=== PATIENT | male | born 1945 | race Caucasian/White ===

== ENCOUNTER → 2016-12-30 | Outpatient (CLI) | payer MEDICARE ==
--- NOTE | 2016-12-30 21:40 | CT ---
EXAMINATION TYPE: CT cervical spine wo con DATE OF EXAM: 12/30/2016 6:52 PM COMPARISON: NONE HISTORY: Right sided neck pain x [address] DLP: 485.00 mGycm. Automated Exposure Control for Dose Reduction was Utilized. TECHNIQUE: CT scan of the cervical spine is obtained without contrast, axial images are obtained, sa gittal and coronal reformatted images are also reviewed. FINDINGS: Cervical spine is visualized in its entirety from C1 through upper thoracic levels, demonst rates straightened alignment without evidence of acute fracture or dislocation. There is grade 1 retr olisthesis of C3 on C4, C5 on C6, and C6 on C7. Prevertebral soft tissue appears within normal limits . The C1-C2 articulation is within normal limits on the coronal images. Vertebral body heights are m aintained. There is moderate to severe disc space narrowing at C3-C4, C5-C6, and C6-C7 levels. Modera te to severe spurring is noted at C5-C6 and C6-C7 levels. Spinal canal is fairly well maintained on s agittal images. Osseous structures are somewhat demineralized. Review of axial images shows the C2-C3 level to appear within normal limits. Axial images at C3-C4 level show posterior and marginal spurring mildly effacing anterior thecal sac and causing mild bilateral neural foraminal narrowing. Axial images at C4-C5 level show right-sided uncovertebral facet degenerative changes causing moderat e right-sided neural foraminal narrowing. Axial images at C5-C6 level show left-sided marginal spurring and uncovertebral facet degenerative ch anges causing moderate left-sided neural foraminal narrowing. Spondylolisthesis is present. Axial images at C6-C7 level show spondylolisthesis and marginal spurring causing mild to moderate lef t-sided neural foraminal narrowing. Axial images at C7-T1 level show left-sided marginal spurring and facet arthropathy causing mild left -sided neural foraminal narrowing. IMPRESSION: Loss of normal cervical curvature with multilevel degenerative changes seen as detailed a nando.
== END | disposition home or self-care (01) ==
LOC: RADCTMAIN 18:28
PROVIDERS: ATTEND Physical Medicine & Rehabilitation
DX: M47.812 Spondylosis without myelopathy or radiculopathy, cervical region (principal)
CPT/HCPCS: 72125

== ENCOUNTER → 2017-07-06 | Outpatient (CLI) | payer MEDICARE ==
[2017-06-29 15:50] VITALS: BMI 24.1
--- NOTE | 2017-07-06 10:53 | P.HPIM ---
History of Present Illness H&P Date: 07/06/17 Chief Complaint: neck pain This is a 72-year-old patient referred by Dr. Gifford for chronic pain in right side of the neck with some radiation to right shoulder and is referred for right cervical RFA after having relief with two cervical MBBs; patient has defibrillator and Drs. Gifford and Mikel wish for him to have RFA done in a hospital setting. Patient has been taking medications from Dr. Gifford including tramadol medications with some relief. Patient denies adverse drug effects from medications. Patient also denies new-onset weakness, bowel/ bladder incontinence, or any other signs or symptoms of cauda equina syndrome. There are no signs of acute intoxication, and no indications of medication diversion or overuse. Patient notes that pain worsens significantly with rotating the neck and driving , and improves with rest and medication. Patient has used several types of medications for pain, including NSAIDS, TRAMADOL. Patient HAS NOT had surgery. Patient HAS NOT had injections previously. Patient HAS NOT had physical therapy recently. In addition to above, 13-point review of systems is also negative for chest pain , shortness of breath, changes in vision, changes in hearing, new onset weakness , abdominal pain, diarrhea, extreme fatigue, malaise, fever, skin changes, homicidal or suicidal ideation, or bowel or bladder incontinence. 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 enlarged heart, melanoma, neck pain History of Any Multi-Drug Resistant Organisms: None Reported Past Surgical History: AICD, Orthopedic Surgery Additional Past Surgical History / Comment(s): rotator cuff repair, arthroscopy knees Past Anesthesia/Blood Transfusion Reactions: Previous Problems w/ Anesthesia Additional Past Anesthesia/Blood Transfusion Reaction / Comment(s): slow to wake up @times Type of Cardiac Device: AICD Device Placement Date:: 2009 [employer] Smoking Status: Former smoker Medications and Allergies Home Medications Medication Instructions Recorded Confirmed Type Aspirin 81 mg PO DAILY 06/29/17 07/06/17 History Carvedilol [Coreg] 12.5 mg PO BID 06/29/17 07/06/17 History Dutasteride [Avodart] 0.5 mg PO DAILY 06/29/17 07/06/17 History L.acidoph,Paracasei, B.lactis 1 each PO BID 06/29/17 07/06/17 History [Probiotic] Meloxicam [Mobic] 7.5 mg PO DAILY PRN 06/29/17 07/06/17 History [place]-3 Fatty Acids/Fish Oil [Fish 1 each PO DAILY 06/29/17 07/06/17 History Oil 1,000 mg Softgel] Omeprazole [PriLOSEC] 20 mg PO AC-BRKFST PRN 06/29/17 07/06/17 History Rosuvastatin [Crestor] 20 mg PO DAILY 06/29/17 07/06/17 History Ubidecarenone [Co Q-10] 100 mg PO DAILY 06/29/17 07/06/17 History Vitamin B Complex 1 each PO DAILY 06/29/17 07/06/17 History amLODIPine BESYLATE/BENAZEPRIL 1 cap PO DAILY 06/29/17 07/06/17 History [amLODIPine BESYLATE/BENAZEPRIL 5-20 mg] traMADol HCL [Ultram] 25 mg PO Q6HR PRN 06/29/17 07/06/17 History Allergies Allergy/AdvReac Type Severity Reaction Status Date / Time No Known Allergies Allergy Verified 07/06/17 10:23 Results Comments: Computed tomography scan of the cervical spine demonstrates right-sided uncovertebral facet degenerative changes and right-sided neural foraminal narrowing at the C4-C5 level. At the C3-C4 level there is posterior marginal spurring mildly effacing the anterior thecal sac and causing mild bilateral neural foraminal narrowing. This foot C6 level there is left-sided marginal spurring and uncovertebral facet degenerative changes causing moderate left- sided neural foraminal narrowing. There is spondylolisthesis and marginal spurring causing mild to moderate left-sided neural foraminal narrowing at the C6-C7 level. Assessment and Plan (1) Cervical spondylosis without myelopathy Status: Chronic (2) Chronic pain syndrome Status: Chronic (3) Neural foraminal stenosis of cervical spine Status: Chronic Plan: 1. Explanation: Opioid and psychological risk scores were reviewed. Diagnoses , prognoses, and multiple treatment options including but not limited to physical therapy, interventional therapies, adjuvant medical therapies, narcotic medication therapies, and surgery were discussed with the patient and all questions were answered to the patient's satisfaction. 2. Opioid agreement: no opioids prescribed today 3. Counseling: The patient was counseled extensively on BODY MASS INDEX, EXERCISE. Specifically, the patient was instructed regarding the importance of weight control, and exercise in the context of both chronic pain and overall health. 4. Procedures: right ONLY cervical RFA C2-C3, C3-C4, C4-C5, C5-C6 5. Consultations: none 6. Investigations: none 7. Medications: none prescribed 8. Disposition: f/u for procedure as scheduled PQRS measures: 1-Patient's medications are documented in the chart. 2-Tobacco use is negative 3-Patient has not had a pneumococcal vaccine. 4-Advanced care planning discussed, patient unable to give. 5-Opioid contract NOT signed with the patient. 6-Pain positive, follow-up visit or procedure scheduled 7-Patient's blood pressure measured and documented, and patient will follow up with the primary care due to hypertension. 8-Patient's weight was measured, and body mass index WNL. 9-Patient WAS NOT identified as an unhealthy alcohol user. Time with Patient: Greater than 30
[2017-07-06 11:04] VITALS: BP 146/84; PULSE 58; RESP 16; TEMP 97.8
== END | disposition home or self-care (01) ==
LOC: PNWHC3 10:18
PROVIDERS: ATTEND Anesthesiology
DX: M99.71 Connective tissue and disc stenosis of intervertebral foramina of cervical region (principal); M47.812 Spondylosis without myelopathy or radiculopathy, cervical region; G89.4 Chronic pain syndrome; Z79.82 Long term (current) use of aspirin; Z79.02 Long term (current) use of antithrombotics/antiplatelets
CPT/HCPCS: 99211

== ENCOUNTER 2017-07-27 06:44 | Day surgery (SDC) | payer MEDICARE ==
[2017-07-21 09:09] VITALS: BMI 24.1
[~2017-07-27 06:44] MED LIST: LACTATED RINGERS 1,000 ML IV SCH
[2017-07-27 07:08] VITALS: TEMP 97.5
[2017-07-27] MEDS ORDERED: IV FLUID CONTINUATION 1,000 ML IV ONE ×2 (08:10)
--- NOTE | 2017-07-27 08:13 | FL ---
EXAMINATION TYPE: FL guided pain mgmt statistic DATE OF EXAM: 07/27/2017 HISTORY: Flouroscopy time 7 seconds of fluoroscopy provided. IMPRESSION: 1. Fluoroscopy time.
[2017-07-27 08:31] VITALS: BP 117/72; PULSE 63; RESP 16
--- NOTE | 2017-07-27 11:05 | P.PCN ---
Date of Procedure: 07/27/17 Preoperative Diagnosis: Postoperative Diagnosis: Procedure(s) Performed: PREOPERATIVE DIAGNOSIS: Cervical spondylosis with Facet Arthropathy without myelopathy. POSTOPERATIVE DIAGNOSIS: Cervical spondylosis with Facet Arthropathy without myelopathy. PROCEDURES: Radiofrequency thermocoagulation, Right C2-3, C3-4, C4-5, C5-6 medial branch with Fluroscopy [place] ANESTHESIA: Local with 1% lidocaine 4 ml ; IV sedation with fentanyl 100 Mcg , and Versed 2 mg . EBL: Minimal PROCEDURE INDICATION: The patient with neck pain secondary to cervical arthropathy who had more than 50% relief of her pain with previous diagnostic cervical medial branch block. (done at the [facility] ) PROCEDURE DESCRIPTION / TECHNIQUE: The patient was seen and identified in the preoperative area. Risks, benefits, complications, and alternatives were discussed with the patient, the patient agreed to proceed with the procedure and signed the consent. IV was started. Vital signs remained stable throughout the procedure. Patient was taken to the OR and time out was completed. The patient was placed in the prone position on the procedure table. A pillow was placed under the patients chest to increase the cervical interlaminar space. The cervical area was prepped and draped in the usual sterile fashion. Critical pause was taken. Vital signs were closely monitored during the procedure. Conscious sedation was used during the procedure to decrease patients anxiety. Using cross-table lateral fluoroscopy, the centroid of the trapezoid of Right C2 , C3, C4, C5, were identified, marked, and localized with 1% lidocaine. Subsequently, a 20 [id number] radiofrequency cannula with a 10-mm active tip was advanced guided by fluoroscopy to the centroid of the trapezoid of C2 , C3, C4, C5, . Needle tip position was confirmed at the centroid of the trapezoids of C2 , C3, C4, C5, with anteroposterior fluoroscopy. Each site then underwent sensory testing at 50 Hz and 0 to 1 volt and motor testing at 2 Hz and 0 to 3 volt with local stimulation, but no radicular symptoms down the arm. Thereafter Right C2 ,C3, C4,C5 sites underwent radiofrequency thermocoagulation at 80 degrees celsius for 90 seconds after injecting 0.5 ml of PF lidocaine 1%. After thermocoagulation, 1 ml of the block solution containing Dexamethasone 10 mg and 4 mL of PF bupivacaine 0.5% was injected at the Right C2 , C3, C4, C5, levels after negative aspiration of CSF and blood and with no paresthesias. Cannulas were retracted while injecting lidocaine 1% until the needle is out. Skin was cleansed and bandages were applied. COMPLICATIONS: No acute complications. COMMENTS: DISPOSITION / PLANS: The patient was placed in a supine position and transferred to the recovery area in a stable condition for observation and was discharged from the recovery room after meeting discharge criteria. Home discharge instructions given to the patient by the staff. The patient was reexamined prior to discharge. note = magnet was placed on top of the AICD , during the stimulation phase of the degenerative and also during the radiofrequency part , she monitored the whole time , was no significant changes and after the procedure twelve-lead EKG ordered , and there was no skin changes . Implants: Indications for Procedure: Operative Findings: Description of Procedure:
== END 2017-07-27 08:53 | disposition home or self-care (01) ==
LOC: ORPAIN 06:44
PROVIDERS: ATTEND Specialist
DX: M47.812 Spondylosis without myelopathy or radiculopathy, cervical region (principal); M46.92 Unspecified inflammatory spondylopathy, cervical region; Z95.810 Presence of automatic (implantable) cardiac defibrillator; I10 Essential (primary) hypertension
CPT/HCPCS: 93005; 64633; 64634; 99152; 99153; J2250; J1100; J3010

== ENCOUNTER → 2017-08-18 | Outpatient (CLI) | payer MEDICARE ==
[2017-08-18 13:42] VITALS: BP 150/84; PULSE 62; RESP 16
--- NOTE | 2017-08-18 13:55 | P.PN ---
Progress Note - Text Patient returns for followup for chronic neck pain and headaches, s/p R cervical RFA, which provided some relief for 2-3 weeks' interval. Patient continues on tramadol medications for pain from Dr. Gifford with some relief. Patient denies adverse drug effects from medications. Today, pt denies new- onset weakness, bowel/bladder incontinence, or any other signs or symptoms of cauda equina syndrome. There are no signs of acute intoxication, and no indications of medication diversion or overuse. In addition to above, 13-point review of systems is also negative for chest pain , shortness of breath, changes in vision, changes in hearing, new onset weakness , abdominal pain, diarrhea, extreme fatigue, malaise, fever, skin changes, homicidal or suicidal ideation, or bowel or bladder incontinence. 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 cervical spondylosis without myelopathy 2. cervicogenic headache 3. chronic pain syndrome Plan: 1. Explanation: Opioid and psychological risk scores were reviewed. Diagnoses , prognoses, and multiple treatment options including but not limited to physical therapy, interventional therapies, adjuvant medical therapies, narcotic medication therapies, and surgery were discussed with the patient and all questions were answered to the patient's satisfaction. 2. Opioid agreement: Patient has previously signed narcotic agreement, and was orally counseled to not overuse, abuse, divert, or cell medications, and to take them as prescribed by only 1 healthcare provider. The patient was also counseled to store opioid medications in a safe and preferably locked location. Patient was also counseled against driving or operating heavy equipment while using narcotic medications and also to not use alcohol or any illicit or recreational drugs. The patient verbalized understanding that lack of compliance with any of the above and likely result in failure to renew narcotic prescriptions, possible discharge from the clinic, and possible legal ramifications thereafter if indicated. 3. Counseling: The patient was counseled extensively on BODY MASS INDEX, EXERCISE. Specifically, the patient was instructed regarding the importance of weight control, and exercise in the context of both chronic pain and overall health. 4. Procedures: none for now, can call for repeat R cervical RFA if desired 5. Consultations: None 6. Investigations: None 7. Medications: patient told to discuss lido ointment and Voltaren gel with Dr. Gifford 8. Disposition: f/u as needed PQRS measures: 1-Patient's medications are documented in the chart. 2-Tobacco use is negative 3-Patient has not had a pneumococcal vaccine. 4-Advanced care planning discussed, patient unable to give. 5-Opioid contract NOT signed with the patient. 6-Pain positive, follow-up visit or procedure scheduled 7-Patient's blood pressure measured and documented, and patient will follow up with the primary care due to hypertension. 8-Patient's weight was measured, and body mass index within the normal limits 9-Patient WAS NOT identified as an unhealthy alcohol user.
== END ==
LOC: PNWHC3 13:21
PROVIDERS: ATTEND Anesthesiology
DX: M47.812 Spondylosis without myelopathy or radiculopathy, cervical region (principal); R51 Headache; Z79.891 Long term (current) use of opiate analgesic
CPT/HCPCS: 99211

== ENCOUNTER → 2020-06-06 | Day surgery (SDC) | payer MEDICARE, OTHER ==
[2020-05-31 09:06] VITALS: BMI 24.6
[~2020-06-06] MED LIST changes: +BALANCED SALT IRRIG SOLN COMB2 15 ML IRRIG.SOLN IRRIGATION ONE; +DEXAMETHASONE SOD PHOSPHATE 10 MG/ML 1 ML VIAL IV ONE; +EPINEPHrine (PF) 0.3 ML in BALANCED SALT IRRIG SOLN COMB2 500 ML IRRIGATION ONE; +FLUORESCEIN STRIPS 1 MG STRIP RIGHT EYE ONE; +HYALURONATE SODIUM INTRAOCULAR 1 EACH SYRINGE (12MG/ML) INTRAOCULA ONE; +HYDROmorphone 0.5 MG/0.5 ML SYRINGE IVP PRN; +LACTATED RINGERS 1,000 ML IV ONE; +LIDOCAINE 1% (10MG/ML) FOR IV START INTRADERMA PRN; +LIDOCAINE 1% (PF) 10MG/ML VIAL MISCELLANE ONE; +MIDAZOLAM 2 MG/2 ML VIAL ONE; +MOXIFLOXACIN HCL 0.5% DROPS 3 ML BTL OP ONE; +ONDANSETRON 4 MG/2 ML VIAL IVP ONE; +TETRACAINE 0.5% OPHTH (PF) DROPS 4 ML BTL OP ONE; +TIMOLOL 0.5% OPHTH DROPS 5 ML BTL OP ONE; +fentaNYL (PF) 50 MCG/ML 2 ML AMP ONE
[2020-06-06] MEDS: PHENYLEPHRINE 2.5% OPHTH DRP 2ML OP NR ×3 (07:30→07:42)
[2020-06-06] MEDS: CYCLOPENTOLATE 1% OPHTH SOLN 2 ML BTL OP ONE ×3 (07:33→07:45)
--- NOTE | 2020-06-06 08:54 | P.OP ---
Date of Procedure: 06/06/20 Preoperative Diagnosis: NS & PSC & CS & Flomax Postoperative Diagnosis: same w/ miosis Procedure(s) Performed: PIOL, OD Implants: AO1UV 21.00 Anesthesia: MAC Surgeon: Sajan Winslow Estimated Blood Loss (ml): 0 Pathology: none sent Condition: stable Disposition: same day Indications for Procedure: blurry vision Operative Findings: no complications
--- NOTE | 2020-06-06 20:03 | OP ---
OPERATIVE REPORT DATE OF SURGERY: 06/06/2020. PROCEDURE: Phacoemulsification of cataract and intraocular lens implant of the right eye. PREOPERATIVE DIAGNOSIS: Nuclear sclerosis, cortical sclerosis, posterior subcapsular cataract and previous exposure to Flomax. POSTOPERATIVE DIAGNOSIS: Nuclear sclerosis, cortical sclerosis, posterior subcapsular cataract and previous exposure to Flomax, with persistent miosis. SURGEON: Dr. Sajan Winslow. ANESTHESIA: Monitored anesthesia care. ESTIMATED BLOOD LOSS: Zero. SPECIMEN TAKEN: None. NARRATIVE: After obtaining the appropriate consent, the patient was brought to the operating room. There he was placed under cardiac monitoring, prepped and draped in the usual sterile manner. He was approached from his right temporal side, and a 5.5 mm Nikky ring was placed on the patient's cornea over the Purkinje reflex. At the 11 o'clock position, a 1.1 mm MVR blade was used to create a paracentesis port. Through this opening 1% xylocaine MPF 50:50 mix with balanced salt solution was injected into the anterior chamber. This was followed by stabilization of the anterior chamber with Amvisc. At the 9 o'clock position, a 2.75 mm augusto blade was used to create a self-sealing corneal flap incision in a Langerman's fashion. Because of the persistent miosis of approximately 4.5 mm, a 7 mm Malyugin ring was inserted on the pupillary sphincter. This was then followed by a cystotome which was used to begin a continuous tear capsulorrhexis which was completed using the Utrata forceps. Care was taken to ensure that the size of the rhexis was at least the size of the mega on the patient's cornea. Hydrodissection and hydrodelineation of the lens were accomplished with balanced salt solution. Phacoemulsification of the lens utilizing phaco chop was accomplished in 20.65 seconds at 13% power. Additional xylocaine MPF was instilled into the anterior chamber. This was followed by removal of the cortex with irrigation and aspiration along with careful polishing of the posterior capsule in capsule vacuum mode. Amvisc was used to stabilize the capsular bag, and using both [place] and Pepose capsule polishers, the equator and the underside of the anterior capsule leaflet was scrubbed for remaining lens fibers. The temporal incision was enlarged slightly and a Bausch and Lomb crystal lens, model AO1UV 21 diopter posterior chamber intraocular lens, was inserted into the capsular bag without difficulty. The lens was rotated approximately 280 degrees and the remaining viscoelastic was removed from in and around the intraocular lens following the removal of the Malyugin ring. The incisions were confirmed watertight and secured with ReSure. He then received 2 drops of moxifloxacin, 1% atropine and 2 drops of 0.5% Timolol. He was then lightly patched and shielded in the usual manner. There were no complications from the procedure. He tolerated the procedure well and was returned to Outpatient Recovery in good condition. MMESE / JONATHAN: [id number] /
[2020-06-08 09:17] VITALS: BP 125/62; PULSE 52; RESP 17; TEMP 97.8
== END | disposition home or self-care (01) ==
LOC: OR 06:58
PROVIDERS: ATTEND Ophthalmology
DX: H25.813 Combined forms of age-related cataract, bilateral (principal); H35.3132 Nonexudative age-related macular degeneration, bilateral, intermediate dry stage; H00.023 Hordeolum internum right eye, unspecified eyelid; H00.026 Hordeolum internum left eye, unspecified eyelid; I11.0 Hypertensive heart disease with heart failure; I50.9 Heart failure, unspecified; K21.9 Gastro-esophageal reflux disease without esophagitis; N40.1 Benign prostatic hyperplasia with lower urinary tract symptoms; N13.8 Other obstructive and reflux uropathy; Z97.3 Presence of spectacles and contact lenses; Z79.82 Long term (current) use of aspirin; Z85.820 Personal history of malignant melanoma of skin; Z98.890 Other specified postprocedural states; Z95.0 Presence of cardiac pacemaker; Z79.899 Other long term (current) drug therapy; Z83.518 Family history of other specified eye disorder; Z80.8 Family history of malignant neoplasm of other organs or systems

== ENCOUNTER 2020-07-11 10:19 | Day surgery (SDC) | payer MEDICARE, OTHER ==
[2020-07-05 11:29] VITALS: BMI 24.7
[~2020-07-11 10:19] MED LIST changes: -BALANCED SALT IRRIG SOLN COMB2 15 ML IRRIG.SOLN IRRIGATION ONE; -DEXAMETHASONE SOD PHOSPHATE 10 MG/ML 1 ML VIAL IV ONE; -EPINEPHrine (PF) 0.3 ML in BALANCED SALT IRRIG SOLN COMB2 500 ML IRRIGATION ONE; -FLUORESCEIN STRIPS 1 MG STRIP RIGHT EYE ONE; -HYALURONATE SODIUM INTRAOCULAR 1 EACH SYRINGE (12MG/ML) INTRAOCULA ONE; -HYDROmorphone 0.5 MG/0.5 ML SYRINGE IVP PRN; -LACTATED RINGERS 1,000 ML IV ONE; -LIDOCAINE 1% (10MG/ML) FOR IV START INTRADERMA PRN; -LIDOCAINE 1% (PF) 10MG/ML VIAL MISCELLANE ONE; -MIDAZOLAM 2 MG/2 ML VIAL ONE; -ONDANSETRON 4 MG/2 ML VIAL IVP ONE; -fentaNYL (PF) 50 MCG/ML 2 ML AMP ONE
[2020-07-11 10:38] VITALS: TEMP 97.3
[2020-07-11] MEDS: CYCLOPENTOLATE 1% OPHTH SOLN 2 ML BTL OP ONE ×3 (10:41→10:53)
[2020-07-11] MEDS: PHENYLEPHRINE 2.5% OPHTH DRP 2ML OP NR ×3 (10:44→10:56)
[2020-07-11] MEDS ORDERED: fentaNYL (PF) 50 MCG/ML 2 ML AMP ONE (11:53)
[2020-07-11] MEDS ORDERED: MIDAZOLAM 2 MG/2 ML VIAL ONE (11:53)
[2020-07-11] MEDS ORDERED: EPINEPHrine (PF) 0.3 ML in BALANCED SALT IRRIG SOLN COMB2 500 ML IRRIGATION ONE (11:59)
[2020-07-11] MEDS ORDERED: HYALURONATE SODIUM INTRAOCULAR 1 EACH SYRINGE (12MG/ML) INTRAOCULA ONE (12:00)
[2020-07-11] MEDS ORDERED: BALANCED SALT IRRIG SOLN COMB2 15 ML IRRIG.SOLN IRRIGATION ONE (12:00)
[2020-07-11] MEDS ORDERED: TIMOLOL 0.5% OPHTH SOLN (PF) 0.2 ML DROPERETTE LEFT EYE ONE (12:01)
[2020-07-11] MEDS ORDERED: MOXIFLOXACIN HCL 0.5% DROPS 3 ML BTL LEFT EYE ONE (12:01)
[2020-07-11] MEDS ORDERED: LIDOCAINE 1% (PF) 10MG/ML VIAL MISCELLANE ONE (12:01)
[2020-07-11] MEDS ORDERED: ATROPINE OPHTH SOLN 1% 5ML BTL LEFT EYE ONE (12:01)
[2020-07-11] MEDS ORDERED: CHONDROITIN-SOD HYALURONATE 1 EACH SYRINGE (0.75 ML) INTRAOCULA ONE (12:27)
--- NOTE | 2020-07-11 12:58 | P.OP ---
Date of Procedure: 07/11/20 Preoperative Diagnosis: NS & CS & PSC & floppy iris Postoperative Diagnosis: same Procedure(s) Performed: PIOL, OS Implants: [id number] 21.00 Anesthesia: MAC Surgeon: Sajan Winslow Pathology: none sent Condition: stable Disposition: same day Indications for Procedure: blurry vision Operative Findings: AC radial tear.
[2020-07-11 13:34] VITALS: BP 138/78; PULSE 60; RESP 20
--- NOTE | 2020-07-12 00:45 | OP ---
OPERATIVE REPORT DATE OF SURGERY: 07/11/2020. PROCEDURE: Phacoemulsification of cataract and intraocular lens implant of the left eye. PREOPERATIVE DIAGNOSIS: Nuclear sclerosis, cortical sclerosis and posterior subcapsular cataract and exposure to Flomax. POSTOPERATIVE DIAGNOSIS: Nuclear sclerosis, cortical sclerosis and posterior subcapsular cataract and exposure to Flomax with floppy iris. SURGEON: Dr. Sajan Winslow. ANESTHESIA: Topical. ESTIMATED BLOOD LOSS: None. SPECIMEN TAKEN: None. NARRATIVE: After obtaining the appropriate consent, the patient was brought to the operating room where he was placed under cardiac monitoring, prepped and draped in the usual sterile manner. He was approached from his left temporal side and at the 5 o'clock position an MVR blade was used to create a paracentesis port. Through this opening 1% Xylocaine MPF with 1:1000 epinephrine MPF and balanced salt solution in a ratio of 1-2-1 was injected into the anterior chamber. This was followed by stabilization of the anterior chamber with Amvisc. At the 3 o'clock position, a 2.75 mm incision in a Langerman's fashion was created using a augusto keratome. Through this opening, a 7 mm Malyugin ring was inserted and placed on the iris sphincter due to the only fair dilation and previous experience with floppy iris in this patient due to his exposure. This was followed by introduction of a cystotome which was used to attempt to begin a continuous tear capsulorrhexis. However as the tip of the cystotome was brought radially through the lens, there was an appreciated release of some tension noted in the anterior capsule. There was an immediate question as to whether or not there possibly was a tear, which continued beyond the expected 5.5 to 6 mm diameter. It was also somewhat difficult to appreciate due to some cortical distortion related to the placement of the Malyugin ring. Therefore, continuous tear capsulorrhexis was started 180 degrees from the initial starting point. This was completed in a counter-clockwise fashion with the terminating end at what was believed to be the radial tear in the anterior capsule. Therefore, a third attempt at the capsulorrhexis was tried from the second starting point and an attempt to carry the rhexis in the clockwise fashion was made again, however, this segment seemed to terminate at what was believed to possibly be a radial tear in the capsule. Therefore, very careful hydrodissection and an attempt at hydrodelineation was accomplished with balanced salt solution. Phacoemulsification of lens utilizing phaco chop was accomplished in 36.29 seconds without difficulty. Once the majority of the nucleus and cortex was removed, it was easy and apparent to appreciate two radial tears at the 12 o'clock position and one at the 6 o'clock position. Care was taken during irrigation and aspiration so as not to extend the radial tear any further through the equator of the bag additionally using Pepose and Roshan capsule polishers which were already available were used to release as much remaining cortical material from the equator while not placing the capsular bag under any more undue stress. Because of the lack of integrity with the anterior capsule, it was decided to avoid the Crystalens, which was planned as implantation device for the secondary backup lens, which was a Bausch and Lomb LI61AO 21.0 diopter. This was placed beautifully within the capsular bag with the haptics 180 degrees from the radial tears which were identified during the cortical cleanup phase. The remaining viscoelastic was removed under irrigation and aspiration and the eye was brought to normal intraocular pressure through the paracentesis port. The patient then received 2 drops of 0.5% timolol, moxifloxacin and 2 drops of 1% atropine. It was lightly patched and shielded in the usual manner. There were no other difficulties encountered during the course of the procedure. He tolerated the procedure well, was returned to outpatient recovery in good condition. MMYANGL / ALPESHN: [id number] /
== END 2020-07-11 13:35 | disposition home or self-care (01) ==
LOC: OR 10:19
PROVIDERS: ATTEND Ophthalmology
DX: H25.812 Combined forms of age-related cataract, left eye (principal); H21.81 Floppy iris syndrome; T44.6X5A Adverse effect of alpha-adrenoreceptor antagonists, initial encounter; H35.3132 Nonexudative age-related macular degeneration, bilateral, intermediate dry stage; H00.023 Hordeolum internum right eye, unspecified eyelid; H00.026 Hordeolum internum left eye, unspecified eyelid; I25.2 Old myocardial infarction; I10 Essential (primary) hypertension; I42.9 Cardiomyopathy, unspecified; K21.9 Gastro-esophageal reflux disease without esophagitis; N40.1 Benign prostatic hyperplasia with lower urinary tract symptoms; N13.8 Other obstructive and reflux uropathy; Z95.810 Presence of automatic (implantable) cardiac defibrillator; Z79.02 Long term (current) use of antithrombotics/antiplatelets; Z79.899 Other long term (current) drug therapy; Z98.41 Cataract extraction status, right eye; Z96.1 Presence of intraocular lens; Z85.820 Personal history of malignant melanoma of skin; Z97.3 Presence of spectacles and contact lenses; Z83.518 Family history of other specified eye disorder; Z80.8 Family history of malignant neoplasm of other organs or systems
CPT/HCPCS: 66982; C1780; J2250; J0171; J3010; J2001